=== PATIENT | female | born 1940 | race Caucasian/White ===

== ENCOUNTER 2017-02-09 17:46 | Emergency (ER) | payer OTHER ==
[~2017-02-09] VITALS: Ht 160 cm; Wt 56.8 kg
[~2017-02-09 17:46] MED LIST: AMLO5TAB66 PO; ASPI81 PO; ATOR40TA28 PO; DICL250C PO; ISOS30TA6 PO; LISI-662 PO; METF500T4 PO; NAPR500T PO; PENT400T3 PO; [UNRECOGNIZED DRUG - CODE] IM
[2017-02-09] MEDS ORDERED: METO-323 PO (18:09)
[2017-02-09] MEDS ORDERED: AMLO-512 PO (18:09)
[2017-02-09 18:43] LABS: APPEARANCE,URINE CLOUDY (CLEAR); GLUCOSE, URINE (UA) NEGATIVE (NEGATIVE); KETONES,URINE NEGATIVE (NEGATIVE); LEUKOCYTE ESTERASE ,URINE LARGE (NEGATIVE); OCCULT BLOOD,URINE LARGE (NEGATIVE); PROTEIN,URINE SEE CONFIRM (NEGATIVE)
[2017-02-09] MEDS ORDERED: ACETAMINOPHEN 325 MG TABLET PO ONE (18:45)
[2017-02-09 18:46] LABS: ADD UA MICROSCOPIC YES
[2017-02-09 18:50] LABS: SULFOSALICYLIC ACID,URINE 1+ (Negative)
[2017-02-09 18:53] LABS: SQUAMOUS EPITHELIAL CELL,UR Few /LPF (None Seen); WBC,URINE 26-50 /HPF (0-5)
[2017-02-09] MEDS ORDERED: NITROFURANTOIN/NITROFURAN MAC 100 MG CAPSULE [MACROBID] PO ONE (19:30)
[2017-02-09 19:43] VITALS: BP 117/75
== END 2017-02-09 19:45 | disposition home or self-care (01) ==
LOC: EMS 17:48
DX: N39.0 Urinary tract infection, site not specified (principal); E11.9 Type 2 diabetes mellitus without complications; I10 Essential (primary) hypertension
CPT/HCPCS: 87086; 99284

== ENCOUNTER 2017-06-13 09:53 | Emergency (ER) | payer OTHER ==
[~2017-06-13] VITALS: Ht 154.9 cm; Wt 54.5 kg
[~2017-06-13 09:53] MED LIST changes: +AMLO-512 PO; -AMLO5TAB66 PO; -DICL250C PO; -ISOS30TA6 PO; +METO25XL PO; -NAPR500T PO; -PENT400T3 PO; -[UNRECOGNIZED DRUG - CODE] IM
[2017-06-13 10:07] LABS: GLUCOSE,POINT OF CARE 231 MG/DL (70-110)
[2017-06-13] MEDS ORDERED: SODIUM CHLORIDE 0.9% 1,000 ML IV ONE (10:15)
[2017-06-13] MEDS ORDERED: ACETAMINOPHEN 325 MG TABLET PO ONE (10:15)
[2017-06-13] MEDS ORDERED: ONDANSETRON HCL 4 MG/2 ML VIAL IVP ONE (10:15)
[2017-06-13] MEDS ORDERED: MECLIZINE HCL 25 MG TABLET PO ONE (10:15)
[2017-06-13 10:53] LABS: BASOPHILS # (AUTO) 0.03 K/uL (0.00-0.20); BASOPHILS % (AUTO) 0.4 % (0.0-2.0); EOSINOPHILS # (AUTO) 0.05 K/uL (0.00-0.70); EOSINOPHILS % (AUTO) 0.79 % (1.0-6.0); HEMATOCRIT 43.4 % (36-46); HEMOGLOBIN 14.5 g/dL (12.0-16.0); LYMPHOCYTES # (AUTO) 1.9 K/uL (1.0-4.8); LYMPHOCYTES % (AUTO) 30.1 % (22.0-44.0); MEAN CORPUSCULAR HEMOGLOBIN 29.6 pg (26.0-34.0); MEAN CORPUSCULAR HGB CONC 33.4 G/dL (31.0-37.0); MEAN CORPUSCULAR VOLUME 89 fL (80-100); MONOCYTES # (AUTO) 0.3 K/uL (0.1-1.0); MONOCYTES % (AUTO) 5.4 % (2.0-9.0); NEUTROPHILS # (AUTO) 3.9 K/uL (1.8-7.7); NEUTROPHILS % (AUTO) 63.3 % (40.0-70.0); PLATELET COUNT (AUTO) 192 K/uL (150-450); RED BLOOD CELL COUNT(AUTO) 4.89 MIL/uL (4.00-5.20); RED CELL DISTRIBUTION WIDTH 13.5 % (11.5-14.5); WHITE BLOOD COUNT (AUTO) 6.1 K/uL (4.5-11.0)
[2017-06-13 11:07] LABS: ANION GAP 7 mmol/L (8-16); CALCIUM, TOTAL 10.1 mg/dL (8.8-10.5); CARBON DIOXIDE 29 mmol/L (22-29); CHLORIDE 100 mmol/L (98-107); CREATININE 0.71 mg/dL (0.60-1.30); GLOMERULAR FILTR. RATE CALC > 60 mL/min (>60); POTASSIUM 4.2 mmol/L (3.5-5.1); SODIUM SERUM 136 mmol/L (136-145); UREA NITROGEN, BLOOD 11 mg/dL (7-18)
[2017-06-13 12:07] VITALS: BP 119/33
== END 2017-06-13 12:25 | disposition home or self-care (01) ==
LOC: EMS 09:54
DX: R42 Dizziness and giddiness (principal); E11.9 Type 2 diabetes mellitus without complications; I10 Essential (primary) hypertension; E78.00 Pure hypercholesterolemia, unspecified
CPT/HCPCS: 36415; 70450; 80048; 82962; 85025; 93005; 96361; 96374; 99285; J2405; J7030

== ENCOUNTER 2017-07-17 10:01 | Emergency (ER) | payer OTHER ==
[~2017-07-17] VITALS: Ht 154.9 cm; Wt 54.5 kg
[2017-07-17] MEDS ORDERED: MECL-111 PO (10:13)
[2017-07-17 10:23] LABS: GLUCOSE,POINT OF CARE 271 MG/DL (70-110)
[2017-07-17 15:22] LABS: BASOPHILS # (AUTO) 0.04 K/uL (0.00-0.20); BASOPHILS % (AUTO) 0.5 % (0.0-2.0); EOSINOPHILS # (AUTO) 0.02 K/uL (0.00-0.70); EOSINOPHILS % (AUTO) 0.31 % (1.0-6.0); HEMATOCRIT 41.1 % (36-46); HEMOGLOBIN 13.6 g/dL (12.0-16.0); LYMPHOCYTES # (AUTO) 2.7 K/uL (1.0-4.8); MEAN CORPUSCULAR HEMOGLOBIN 29.6 pg (26.0-34.0); MEAN CORPUSCULAR HGB CONC 33.1 G/dL (31.0-37.0); MEAN CORPUSCULAR VOLUME 90 fL (80-100); MONOCYTES # (AUTO) 0.4 K/uL (0.1-1.0); MONOCYTES % (AUTO) 5.1 % (2.0-9.0); NEUTROPHILS # (AUTO) 4.3 K/uL (1.8-7.7); NEUTROPHILS % (AUTO) 58.2 % (40.0-70.0); PLATELET COUNT (AUTO) 180 K/uL (150-450); RED BLOOD CELL COUNT(AUTO) 4.58 MIL/uL (4.00-5.20)
[2017-07-17 15:41] LABS: ANION GAP 8 mmol/L (8-16); CALCIUM, TOTAL 10.1 mg/dL (8.8-10.5); CARBON DIOXIDE 27 mmol/L (22-29); CHLORIDE 102 mmol/L (98-107); CREATININE 0.54 mg/dL (0.60-1.30); GLOMERULAR FILTR. RATE CALC > 60 mL/min (>60); GLUCOSE,RANDOM 147 mg/dL (70-110); SODIUM SERUM 137 mmol/L (136-145); UREA NITROGEN, BLOOD 11 mg/dL (7-18)
[2017-07-17 15:49] LABS: ALANINE AMINOTRANSFERASE 31 U/L (12-78); ALBUMIN 3.9 g/dL (3.4-5.0); ALKALINE PHOSPHATASE 73 U/L (46-116); ASPARTATE AMINOTRANSFERASE 14 U/L (15-37); BILIRUBIN,TOTAL 0.5 mg/dL (0.1-1.0); CREATINE KINASE, TOTAL 48 U/L (26-192); TOTAL PROTEIN, SERUM 7.7 g/dL (6.4-8.2)
[2017-07-17 16:08] LABS: BILIRUBIN,URINE NEGATIVE (NEGATIVE); GLUCOSE, URINE (UA) 100 mg/dL (NEGATIVE); KETONES,URINE NEGATIVE (NEGATIVE); LEUKOCYTE ESTERASE ,URINE SMALL (NEGATIVE); NITRATE,URINE NEGATIVE (NEGATIVE); OCCULT BLOOD,URINE NEGATIVE (NEGATIVE); PROTEIN,URINE NEGATIVE (NEGATIVE); UROBILINOGEN,URINE 0.2 mg/dL (<=1.0)
[2017-07-17 16:26] LABS: APPEARANCE,URINE HAZY (CLEAR)
[2017-07-17 16:27] LABS: BACTERIA,URINE None Seen /HPF (None Seen); RBC,URINE 0-2 /HPF (0-2)
[2017-07-17 16:28] LABS: SQUAMOUS EPITHELIAL CELL,UR Few /LPF (None Seen)
[2017-07-17 16:44] LABS: B-TYPE NATRIURETIC PEPTIDE 32 pg/mL (0-100)
[2017-07-17 18:03] VITALS: BP 121/53
== END 2017-07-17 18:34 | disposition home or self-care (01) ==
LOC: EMS 10:03
DX: R42 Dizziness and giddiness (principal); I10 Essential (primary) hypertension; E11.9 Type 2 diabetes mellitus without complications; E78.00 Pure hypercholesterolemia, unspecified
CPT/HCPCS: 82962; 93005; 99285

== ENCOUNTER 2017-08-06 13:45 | Emergency (ER) | payer OTHER ==
[~2017-08-06] VITALS: Ht 152.4 cm; Wt 56.8 kg
[~2017-08-06 13:45] MED LIST changes: +MECL-111 PO
[2017-08-06 15:52] VITALS: BP 133/54
== END 2017-08-06 15:54 | disposition home or self-care (01) ==
LOC: EMS 13:46
DX: E11.9 Type 2 diabetes mellitus without complications (principal); I10 Essential (primary) hypertension; E78.00 Pure hypercholesterolemia, unspecified; Z79.82 Long term (current) use of aspirin
CPT/HCPCS: 99283

== ENCOUNTER 2018-06-28 09:26 | Emergency (ER) | payer OTHER ==
[~2018-06-28] VITALS: Ht 152.4 cm; Wt 59.0 kg
[~2018-06-28 09:26] MED LIST changes: +METF-960 PO; -METF500T4 PO
[2018-06-28 09:49] LABS: GLUCOSE,POINT OF CARE 298 MG/DL (70-110)
[2018-06-28] MEDS ORDERED: LIDOCAINE 1% 10 ML VIAL INJ ONE (10:15)
[2018-06-28 11:23] VITALS: BP 138/66
== END 2018-06-28 11:31 | disposition home or self-care (01) ==
LOC: EMS 09:28
DX: J86.9 Pyothorax without fistula (principal); I10 Essential (primary) hypertension; E11.9 Type 2 diabetes mellitus without complications; E78.00 Pure hypercholesterolemia, unspecified; Z79.899 Other long term (current) drug therapy; Z79.84 Long term (current) use of oral hypoglycemic drugs; Z79.82 Long term (current) use of aspirin
CPT/HCPCS: 10060; 82962; 99283; J3490

== ENCOUNTER 2018-06-30 09:11 | Emergency (ER) | payer OTHER ==
[~2018-06-30] VITALS: Ht 157.5 cm; Wt 54.5 kg
[2018-06-30 09:34] LABS: GLUCOSE,POINT OF CARE 233 MG/DL (70-110)
[2018-06-30 09:59] VITALS: BP 122/72
== END 2018-06-30 11:00 | disposition home or self-care (01) ==
LOC: EMS 09:12
DX: L02.413 Cutaneous abscess of right upper limb (principal); E11.9 Type 2 diabetes mellitus without complications; E78.00 Pure hypercholesterolemia, unspecified; I10 Essential (primary) hypertension; Z79.899 Other long term (current) drug therapy; Z79.82 Long term (current) use of aspirin

== ENCOUNTER 2022-04-02 00:15 | Emergency (ER) | payer OTHER ==
[~2022-04-02] VITALS: Ht 160 cm; Wt 49.0 kg
[~2022-04-02 00:15] MED LIST changes: +AMLO-258 PO; -AMLO-512 PO; +ASPI-1450 PO; -ASPI81 PO; -LISI-662 PO; +LISI-894 PO; -MECL-111 PO; +MECL-160 PO; +METF-1211 PO; -METF-960 PO
[2022-04-02 01:37] LABS: BASOPHILS % (AUTO) 0.3 % (0.0-2.0); EOSINOPHILS % (AUTO) 0.6 % (1.0-6.0); HEMATOCRIT 40.2 % (36-46); HEMOGLOBIN 13.5 g/dL (12.0-16.0); LYMPHOCYTES # (AUTO) 1.4 K/uL (1.0-4.8); MEAN CORPUSCULAR HEMOGLOBIN 29.4 pg (26.0-34.0); MEAN CORPUSCULAR HGB CONC 33.5 G/dL (31.0-37.0); MEAN CORPUSCULAR VOLUME 88 fL (80-100); MONOCYTES # (AUTO) 0.7 K/uL (0.1-1.0); MONOCYTES % (AUTO) 5.6 % (2.0-9.0); NEUTROPHILS # (AUTO) 9.9 K/uL (1.8-7.7); NEUTROPHILS % (AUTO) 81.5 % (40.0-70.0); PLATELET COUNT (AUTO) 217 K/uL (150-450); RED BLOOD CELL COUNT(AUTO) 4.57 MIL/uL (4.00-5.20)
[2022-04-02] MEDS ORDERED: PB/HYOSCY/ATR/SCOP/LIDO/MAALOX 55 ML BOTTLE PO ONE (01:45)
[2022-04-02 01:46] LABS: ANION GAP 8 mmol/L (8-16); CALCIUM, TOTAL 9.6 mg/dL (8.8-10.5); CARBON DIOXIDE 27 mmol/L (22-29); CHLORIDE 95 mmol/L (98-107); CREATININE 0.68 mg/dL (0.60-1.30); GLUCOSE,RANDOM 178 mg/dL (70-110); POTASSIUM 3.8 mmol/L (3.5-5.1); SODIUM SERUM 130 mmol/L (136-145); UREA NITROGEN, BLOOD 12 mg/dL (7-18)
[2022-04-02 01:47] LABS: GLOMERULAR FILTR. RATE CALC > 60 mL/min (>60)
[2022-04-02 01:52] LABS: ALANINE AMINOTRANSFERASE 33 U/L (12-78); ALBUMIN 4.2 g/dL (3.4-5.0); ALKALINE PHOSPHATASE 74 U/L (46-116); ASPARTATE AMINOTRANSFERASE 21 U/L (15-37); BILIRUBIN,TOTAL 0.6 mg/dL (0.1-1.0); PROTHROMBIN TIME 10.6 SEC (9.4-11.6); TOTAL PROTEIN, SERUM 7.6 g/dL (6.4-8.2)
[2022-04-02 02:01] LABS: B-TYPE NATRIURETIC PEPTIDE 71 pg/mL (0-100)
[2022-04-02 02:16] LABS: GLUCOMETER DEV NAME(LOC) ERT.5; GLUCOSE,POINT OF CARE 165 MG/DL (70-110)
[2022-04-02] MEDS ORDERED: CLOP75TA60 PO (03:43)
[2022-04-02 04:43] VITALS: BP 118/55
== END 2022-04-02 05:07 | disposition home or self-care (01) ==
LOC: EMS 00:16
DX: K21.9 Gastro-esophageal reflux disease without esophagitis (principal); E11.65 Type 2 diabetes mellitus with hyperglycemia; E87.1 Hypo-osmolality and hyponatremia; E78.00 Pure hypercholesterolemia, unspecified; I10 Essential (primary) hypertension; Z98.890 Other specified postprocedural states
CPT/HCPCS: 71045; 80053; 82962; 83880; 84484; 85025; 85610; 85730; 93005; 99285; 36415-L1; 36415-TC

== ENCOUNTER 2022-04-13 17:03 | Emergency (ER) | payer OTHER ==
[~2022-04-13] VITALS: Ht 160 cm; Wt 55.5 kg
[~2022-04-13 17:03] MED LIST changes: +CLOP75TA60 PO
[2022-04-13] MEDS ORDERED: OS500 PO (17:47)
[2022-04-13 18:10] VITALS: BP 135/78
[2022-04-13] MEDS ORDERED: POLY17PO47 PO (18:50)
== END 2022-04-13 19:30 | disposition home or self-care (01) ==
LOC: EMS 17:16
DX: K59.00 Constipation, unspecified (principal); E11.9 Type 2 diabetes mellitus without complications; E78.00 Pure hypercholesterolemia, unspecified; I10 Essential (primary) hypertension
CPT/HCPCS: 99282; Z7502

== ENCOUNTER 2022-04-29 11:29 | Emergency (ER) | payer OTHER ==
[~2022-04-29] VITALS: Ht 160 cm; Wt 52.3 kg
[~2022-04-29 11:29] MED LIST changes: -CLOP75TA60 PO; -MECL-160 PO; +OS500 PO; +POLY17PO47 PO
[2022-04-29 12:57] LABS: BASOPHILS % (AUTO) 0.3 % (0.0-2.0); EOSINOPHILS % (AUTO) 0.1 % (1.0-6.0); HEMOGLOBIN 13.1 g/dL (12.0-16.0); LYMPHOCYTES # (AUTO) 1.1 K/uL (1.0-4.8); MEAN CORPUSCULAR HEMOGLOBIN 29.8 pg (26.0-34.0); MEAN CORPUSCULAR HGB CONC 34.4 G/dL (31.0-37.0); MEAN CORPUSCULAR VOLUME 87 fL (80-100); MONOCYTES # (AUTO) 0.5 K/uL (0.1-1.0); MONOCYTES % (AUTO) 5.5 % (2.0-9.0); NEUTROPHILS # (AUTO) 6.9 K/uL (1.8-7.7); NEUTROPHILS % (AUTO) 81.1 % (40.0-70.0); PLATELET COUNT (AUTO) 253 K/uL (150-450); RED BLOOD CELL COUNT(AUTO) 4.39 MIL/uL (4.00-5.20); RED CELL DISTRIBUTION WIDTH 13.7 % (11.5-14.5)
[2022-04-29 13:05] LABS: BILIRUBIN,URINE NEGATIVE (NEGATIVE); GLUCOSE, URINE (UA) 150-200 mg/dL (NEGATIVE); KETONES,URINE NEGATIVE (NEGATIVE); LEUKOCYTE ESTERASE ,URINE MODERATE (NEGATIVE); NITRATE,URINE NEGATIVE (NEGATIVE); OCCULT BLOOD,URINE NEGATIVE (NEGATIVE); PH,URINE 7.5 (5.0-8.0); PROTEIN,URINE NEGATIVE (NEGATIVE); SPECIFIC GRAVITIY, URINE 1.003 (1.003-1.030); UROBILINOGEN,URINE <=1.0 mg/dL (<=1.0)
[2022-04-29 13:09] LABS: APPEARANCE,URINE CLEAR (CLEAR)
[2022-04-29 13:10] LABS: ANION GAP 6 mmol/L (8-16); CALCIUM, TOTAL 9.7 mg/dL (8.8-10.5); CARBON DIOXIDE 28 mmol/L (22-29); CHLORIDE 96 mmol/L (98-107); CREATININE 0.57 mg/dL (0.60-1.30); GLUCOSE,RANDOM 188 mg/dL (70-110); SODIUM SERUM 130 mmol/L (136-145); UREA NITROGEN, BLOOD 5 mg/dL (7-18)
[2022-04-29 13:11] LABS: GLOMERULAR FILTR. RATE CALC > 60 mL/min (>60)
[2022-04-29 13:12] LABS: B-TYPE NATRIURETIC PEPTIDE 90 pg/mL (0-100)
[2022-04-29 13:14] LABS: ALANINE AMINOTRANSFERASE 23 U/L (12-78); ALKALINE PHOSPHATASE 71 U/L (46-116); ASPARTATE AMINOTRANSFERASE 10 U/L (15-37); BILIRUBIN,TOTAL 0.5 mg/dL (0.1-1.0); CREATINE KINASE, TOTAL ONLY 48 U/L (26-192); TOTAL PROTEIN, SERUM 7.2 g/dL (6.4-8.2)
[2022-04-29 13:18] LABS: PROTHROMBIN TIME 10.8 SEC (9.4-11.6)
[2022-04-29 13:19] LABS: BACTERIA,URINE Many /HPF (None Seen); RBC,URINE None Seen /HPF (0-2)
[2022-04-29 13:20] LABS: RENAL EPITHELIAL CELLS,URINE Rare /LPF (None Seen)
[2022-04-29] MEDS ORDERED: CEPH-558 PO (13:51)
[2022-04-29 13:54] VITALS: BP 131/65
[2022-04-29] MEDS: CEPHALEXIN MONOHYDRATE 500 MG CAPSULE PO ONE (13:54)
== END 2022-04-29 14:03 | disposition home or self-care (01) ==
LOC: EMS 11:46
DX: N39.0 Urinary tract infection, site not specified (principal); E11.9 Type 2 diabetes mellitus without complications; E78.00 Pure hypercholesterolemia, unspecified; I10 Essential (primary) hypertension; Z98.890 Other specified postprocedural states
CPT/HCPCS: 71045; 80053; 81001; 82550; 83880; 84484; 85025; 85610; 85730; 87086; 87186; 93005; 99285; 36415-L1; 36415-TC

== ENCOUNTER 2022-10-26 11:25 | Emergency (ER) | payer OTHER ==
[~2022-10-26] VITALS: Ht 157.5 cm; Wt 52.7 kg
[~2022-10-26 11:25] MED LIST changes: +CEPH-558 PO
[2022-10-26 12:29] LABS: BASOPHILS % (AUTO) 0.5 % (0.0-2.0); EOSINOPHILS % (AUTO) 0.1 % (1.0-6.0); HEMATOCRIT 41.1 % (36-46); LYMPHOCYTES # (AUTO) 1.1 K/uL (1.0-4.8); MEAN CORPUSCULAR HEMOGLOBIN 29.8 pg (26.0-34.0); MEAN CORPUSCULAR HGB CONC 33.9 G/dL (31.0-37.0); MEAN CORPUSCULAR VOLUME 88 fL (80-100); MONOCYTES # (AUTO) 0.4 K/uL (0.1-1.0); MONOCYTES % (AUTO) 5.3 % (2.0-9.0); NEUTROPHILS # (AUTO) 6.4 K/uL (1.8-7.7); NEUTROPHILS % (AUTO) 80.1 % (40.0-70.0); PLATELET COUNT (AUTO) 221 K/uL (150-450); RED BLOOD CELL COUNT(AUTO) 4.68 MIL/uL (4.00-5.20); RED CELL DISTRIBUTION WIDTH 13.8 % (11.5-14.5)
[2022-10-26 12:39] LABS: ANION GAP 9 mmol/L (8-16); CALCIUM, TOTAL 9.6 mg/dL (8.8-10.5); CARBON DIOXIDE 26 mmol/L (22-29); CHLORIDE 99 mmol/L (98-107); CREATININE 0.53 mg/dL (0.60-1.30); GLOMERULAR FILTR. RATE CALC > 60 mL/min (>60); GLUCOSE,RANDOM 227 mg/dL (70-110); POTASSIUM 4.4 mmol/L (3.5-5.1); SODIUM SERUM 134 mmol/L (136-145); UREA NITROGEN, BLOOD 9 mg/dL (7-18)
[2022-10-26 12:45] LABS: ALANINE AMINOTRANSFERASE 26 U/L (12-78); ALBUMIN 3.9 g/dL (3.4-5.0); ALKALINE PHOSPHATASE 78 U/L (46-116); ASPARTATE AMINOTRANSFERASE 15 U/L (15-37); BILIRUBIN,TOTAL 0.5 mg/dL (0.1-1.0); TOTAL PROTEIN, SERUM 7.4 g/dL (6.4-8.2)
[2022-10-26 14:03] LABS: APPEARANCE,URINE CLEAR (CLEAR); BILIRUBIN,URINE NEGATIVE (NEGATIVE); GLUCOSE, URINE (UA) 300-500 mg/dL (NEGATIVE); KETONES,URINE NEGATIVE (NEGATIVE); LEUKOCYTE ESTERASE ,URINE NEGATIVE (NEGATIVE); NITRATE,URINE NEGATIVE (NEGATIVE); OCCULT BLOOD,URINE NEGATIVE (NEGATIVE); PROTEIN,URINE NEGATIVE (NEGATIVE); SPECIFIC GRAVITIY, URINE 1.003 (1.003-1.030); UROBILINOGEN,URINE <=1.0 mg/dL (<=1.0)
[2022-10-26 14:04] VITALS: BP 134/55
[2022-10-26 14:12] LABS: BACTERIA,URINE Rare /HPF (None Seen); RBC,URINE None Seen /HPF (0-2); SQUAMOUS EPITHELIAL CELL,UR Rare /LPF (None Seen); WBC,URINE None Seen /HPF (0-5)
== END 2022-10-26 14:26 | disposition home or self-care (01) ==
LOC: EMS 11:28
DX: E11.65 Type 2 diabetes mellitus with hyperglycemia (principal); K21.9 Gastro-esophageal reflux disease without esophagitis; E78.00 Pure hypercholesterolemia, unspecified; I10 Essential (primary) hypertension; I82.621 Acute embolism and thrombosis of deep veins of right upper extremity
CPT/HCPCS: 80053; 81001; 82962; 84484; 85025; 99283